=== PATIENT | female | born 1940 | race Caucasian/White ===

== ENCOUNTER 2020-02-21 08:24 | Outpatient (CLI) | payer MEDICARE, SELFPAY ==
--- NOTE | 2020-02-21 09:18 | MM_ITS ---
WS: [id number] BILATERAL SCREENING DIGITAL MAMMOGRAM WITH CAD HISTORY: SCR COMPARISON: 02/14/2019, 10/30/2017 Bilateral CC and MLO views submitted. Computer aided detection analyzed. Breast composition: There are scattered areas of fibroglandular density. No suspicious masses, microc alcifications or architectural distortion. Benign calcifications within each breast. Well-circumscrib ed 5 mm mass in the anterior RIGHT breast has been stable over multiple prior studies. MM/[place] [id number] IMPRESSION: BI-RADS: 2-Benign FOLLOW UP: 1 Year Follow-up
== END 2020-02-21 08:25 | disposition home or self-care (01) ==
LOC: RADSHAW 08:32
PROVIDERS: PCP Nurse Practitioner Family; Visit Provider Nurse Practitioner Family
DX: Z12.31 Encounter for screening mammogram for malignant neoplasm of breast (principal)
CPT/HCPCS: 77067

== ENCOUNTER → 2020-09-18 14:25 | Outpatient (BNVA) | payer MEDICARE, SELFPAY | PROVIDERS: PCP Nurse Practitioner Family; Visit Provider Internal Medicine | DX: M71.9 Bursopathy, unspecified (principal) | CPT/HCPCS: 73502 ==

== ENCOUNTER 2020-10-05 12:10 | Outpatient (CLI) | payer MEDICARE, SELFPAY ==
--- NOTE | 2020-10-05 12:19 | XRR_ITS ---
PROCEDURE INFORMATION: Exam: XR Chest Exam date and time: 10/05/2020 12:53 PM Age: 79 years old Clinical indication: Cough; Prior surgery; Surgery type: Triple bypass; Additional info: Hypercalcemia/cough TECHNIQUE: Imaging protocol: XR of the chest Views: Frontal and lateral upright views. COMPARISON: No relevant prior studies available. FINDINGS: Tubes, catheters and devices: The patient is status post median sternotomy with intact sternal cerclage wires. Lungs: The lungs are clear bilaterally. The pulmonary vasculature is normal. Pleural spaces: Unremarkable. No pleural effusion. No pneumothorax. Heart/Mediastinum: The heart is normal in size and contour. Bones/joints: Degenerative disk disease is present at mid-thoracic spine disk levels. XR/XR chest 2V* [id number] IMPRESSION: No acute cardiopulmonary abnormality identified.
--- NOTE | 2020-10-05 12:19 | XRR_ITS ---
PROCEDURE INFORMATION: Exam: XR Lumbosacral Spine Exam date and time: 10/05/2020 12:53 PM Age: 79 years old Clinical indication: Pain; Other: Radiculopathy TECHNIQUE: Imaging protocol: XR of the lumbosacral spine. Views: 3 views. Other technique: AP, lateral and spot lateral views of the lumbar spine are submitted. COMPARISON: CR XR hip LT 2-3V wo/w pel* [id number] 09/18/2020 2:38 PM FINDINGS: Bones/joints: Bilateral L4-L5 and L5-S1 lumbar facet primary osteoarthritis. No destructive bony process identified. No fracture identified. Soft tissues: Unremarkable. Vasculature: Mild aortic atherosclerotic calcification without aneurysm. XR/XR lumbar spine 2-3V* [id number] IMPRESSION: Bilateral lower lumbar facet primary osteoarthritis.
== END 2020-10-05 12:11 | disposition home or self-care (01) ==
PROVIDERS: PCP Internal Medicine; Visit Provider Internal Medicine
DX: M54.16 Radiculopathy, lumbar region (principal); M47.816 Spondylosis without myelopathy or radiculopathy, lumbar region; R05 Cough
CPT/HCPCS: 71046; 72100

== ENCOUNTER 2020-10-13 14:36 | Outpatient (CLI) | payer MEDICARE, SELFPAY ==
--- NOTE | 2020-10-13 14:57 | XR_ITS ---
WS: [id number] Bone mineral density performed on a uniRow, today Clinical data: OSTEOPOROSIS Findings: The first 4 lumbar vertebral bodies demonstrated the bone mineral density of 0.899 g/cm2 for a young adult T score of -2.3. Measurement of the left hip reveals a bone mineral density of 0.726 g/cm2 with a young adult T score of -2.2. Measurement of the right hip reveals the bone mineral density of 0.758 g/cm2 for young adult T score of -2.0. XR/XR DEXA axial skeleton* [id number] Impression: Osteopenia of the lumbar spine and both hips.
== END 2020-10-13 14:37 | disposition home or self-care (01) ==
LOC: RADWPI 14:37
PROVIDERS: PCP Internal Medicine; Visit Provider Nurse Practitioner Family
DX: M81.0 Age-related osteoporosis without current pathological fracture (principal); M85.88 Other specified disorders of bone density and structure, other site
CPT/HCPCS: 77080

== ENCOUNTER 2020-10-14 06:00 | Outpatient (RCR) | payer MEDICARE, SELFPAY | END 2020-10-28 23:59 | disposition home or self-care (01) | LOC: TPT 06:00 | PROVIDERS: PCP Internal Medicine; Referring Provider Internal Medicine; Visit Provider Internal Medicine | DX: M25.552 Pain in left hip (principal) | CPT/HCPCS: 97110; 97161 ==

== ENCOUNTER 2021-02-22 11:21 | Outpatient (CLI) | payer MEDICARE, SELFPAY ==
--- NOTE | 2021-02-22 11:25 | MM_ITS ---
WS: [id number] BILATERAL DIGITAL SCREENING MAMMOGRAPHY WITH CAD CLINICAL INFORMATION: SCREENING HISTORY: Screening mammogram. No current complaints. COMPARISON: February 21, 2020 TECHNIQUE: Bilateral CC and MLO views. FINDINGS: Scattered fibroglandular densities bilaterally. Punctate and lucent centered calcification. Dystrophi c calcifications. No suspicious focal mass, asymmetry, calcifications, or architectural distortion. N o evidence of malignancy. MM/[place] [id number] IMPRESSION: BI-RADS: 2-Benign FOLLOW UP: 1 Year Follow-up Recommend return to annual screening mammography.
== END 2021-02-22 11:22 | disposition home or self-care (01) ==
LOC: RADSHAW 11:24
PROVIDERS: PCP Internal Medicine; Visit Provider Internal Medicine
DX: Z12.31 Encounter for screening mammogram for malignant neoplasm of breast (principal)
CPT/HCPCS: 77067

== ENCOUNTER 2021-07-14 10:56 | Outpatient (CLI) | payer MEDICARE, SELFPAY ==
--- NOTE | 2021-07-14 11:08 | XRR_ITS ---
PROCEDURE INFORMATION: Exam: XR Chest Exam date and time: 07/14/2021 11:08 AM Age: 80 years old Clinical indication: Other: Weight loss; Additional info: Hypercalcemia/weight loss TECHNIQUE: Imaging protocol: XR of the chest. Views: 2 views. Total images: 2 COMPARISON: CR XR chest 2V* [id number] 10/05/2020 12:40 PM FINDINGS: Lungs: No acute focal pulmonary opacities are detected. Pleural spaces: Unremarkable. No pleural effusion. No pneumothorax. Heart/Mediastinum: Heart size is stable when compared to the prior exam. Bones/joints: Osseous structures are unchanged from the prior exam. Diffuse osteopenia noted. Other findings: Stable postsurgical changes. XR/XR chest 2V* [id number] IMPRESSION: No acute focal pulmonary opacities are detected.
== END 2021-07-14 10:57 | disposition home or self-care (01) ==
LOC: RAD 11:00
PROVIDERS: PCP Internal Medicine; Visit Provider Internal Medicine
DX: E83.52 Hypercalcemia (principal); R63.4 Abnormal weight loss
CPT/HCPCS: 71046